=== PATIENT | female | born 1975 | race Hispanic/Latino ===

== ENCOUNTER 2017-12-26 19:06 | Emergency (ER) | payer OTHER ==
[~2017-12-26] VITALS: Ht 152.4 cm; Wt 90.7 kg
--- OUTSIDE RECORDS SUMMARY | 2017-12-26 19:10 | XMS REPORT ---
Author Author [facility] Address Unknown Phone Unavailable Care Team Providers Care Service Parts Driver Name Role Phone MARANDA JOE Unavailable Unavailable Problems This patient has no known problems. Allergies, Adverse Reactions, Alerts This patient has no known allergies or adverse reactions. Medications This patient has no known medications. Results Test Description Test Time Test Comments Text Results Atomic Results Result Comments RAPID CK-MB 2017-11-29 15:51:00 RAPID CKMB (BEAKER) (test ertm=6356) < ng/mL 0.0-4.3 RAPID TROPONIN [id number] 15:51:00* Test Item Value Reference Range Comments RAPID TROPONIN I (BEAKER) (test gitz=2569) < ng/mL <0.05 [id number] 15:44:00* Test Item Value Reference Range Comments D-DIMER QUANTITATIVE (BEAKER) (test srcc=373) < MG/L FEU <0.50 REGARDING D-DIMER RESULTS: Results of this D-Dimer test should always be interpreted in conjunction with the patient's medical history, clinical presentation and other findings. DVT clinical diagnosis should not be based on the results of INNOVANCE D-Dimer alone.URINALYSIS W/ REFLEX URINE [id number] 15:35:00* Test Item Value Reference Range Comments COLOR (BEAKER) (test xrph=005) Yellow CLARITY (BEAKER) (test xezx=584) Clear SPECIFIC GRAVITY UA (BEAKER) (test ldtj=561) 1.015 1.001-1.035 PH UA (BEAKER) (test tjpw=606) 7.0 5.0-8.0 PROTEIN UA (BEAKER) (test sneb=307) Negative Negative GLUCOSE UA (BEAKER) (test uboh=917) Negative Negative KETONES UA (BEAKER) (test thas=828) Negative Negative BILIRUBIN UA (BEAKER) (test uinv=665) Negative Negative BLOOD UA (BEAKER) (test qfho=038) Small Negative NITRITE UA (BEAKER) (test vncj=138) Negative Negative LEUKOCYTE ESTERASE UA (BEAKER) (test dcql=935) Negative Negative UROBILINOGEN UA (BEAKER) (test egnt=099) 0.2 mg/dL 0.2-1.0 BACTERIA (BEAKER) (test ihac=809) Occasional RBC UA-MANUAL (BEAKER) (test oxim=1320) 5-10 /HPF WBC UA-MANUAL (BEAKER) (test cmkw=0098) <5 /HPF SQUAMOUS EPITHELIAL MANUAL (BEAKER) (test isiz=0692) <5 /HPF SOURCE(BEAKER) (test auxq=3285) CBC W/PLT COUNT & AUTO [id number] 15:24:00* Test Item Value Reference Range Comments WHITE BLOOD CELL COUNT (BEAKER) (test qnpg=818) 9.1 10e3/ L 4.0-10.0 RED BLOOD CELL COUNT (BEAKER) (test jtgd=313) 4.44 10e6/ L 4.00-5.00 HEMOGLOBIN (BEAKER) (test pebw=137) 12.9 g/dL 12.0-15.0 HEMATOCRIT (BEAKER) (test czfv=269) 39.2 % 36.0-45.0 MEAN CORPUSCULAR VOLUME (BEAKER) (test nloj=245) 88.3 fL 82.0-99.0 MEAN CORPUSCULAR HEMOGLOBIN (BEAKER) (test sluh=507) 29.0 pg 27.0-33.0 MEAN CORPUSCULAR HEMOGLOBIN CONC (BEAKER) (test dyog=034) 32.8 g/dL 32.0- 36.0 RED CELL DISTRIBUTION WIDTH (BEAKER) (test briz=565) 12.1 % 10.3-14.2 PLATELET COUNT (BEAKER) (test ztst=536) 492 10e3/ L 150-430 MEAN PLATELET VOLUME (BEAKER) (test gofd=522) 6.5 fL 6.5-10.5 NEUTROPHILS RELATIVE PERCENT (BEAKER) (test uhoo=501) 56 % LYMPHOCYTES RELATIVE PERCENT (BEAKER) (test kfne=955) 32 % MONOCYTES RELATIVE PERCENT (BEAKER) (test seya=243) 9 % EOSINOPHILS RELATIVE PERCENT (BEAKER) (test fypv=839) 2 % BASOPHILS RELATIVE PERCENT (BEAKER) (test srlb=562) 1 % NEUTROPHILS ABSOLUTE COUNT (BEAKER) (test ppwm=581) 5.07 10e3/ L 1.80-8.00 LYMPHOCYTES ABSOLUTE COUNT (BEAKER) (test wlvt=990) 2.92 10e3/ L 1.48-4.50 MONOCYTES ABSOLUTE COUNT (BEAKER) (test lazf=291) 0.84 10e3/ L 0.00-1.30 EOSINOPHILS ABSOLUTE COUNT (BEAKER) (test tdtu=267) 0.21 10e3/ L 0.00-0.50 BASOPHILS ABSOLUTE COUNT (BEAKER) (test aage=622) 0.06 10e3/ L 0.00-0.20 BASIC METABOLIC [id number] 15:22:00* Test Item Value Reference Range Comments SODIUM (BEAKER) (test thel=955) 139 meq/L 135-148 POTASSIUM (BEAKER) (test rasc=601) 4.1 meq/L 3.6-5.5 CHLORIDE (BEAKER) (test wrqr=299) 100 meq/L 98-106 CO2 (BEAKER) (test yrsc=284) 28 meq/L 24-32 BLOOD UREA NITROGEN (BEAKER) (test bmwn=652) 12 mg/dL 10-26 CREATININE (BEAKER) (test qzhc=826) 0.84 mg/dL 0.50-1.20 GLUCOSE RANDOM (BEAKER) (test neui=944) 101 mg/dL 70-110 CALCIUM (BEAKER) (test fypm=168) 9.5 mg/dL 8.5-10.5 EGFR (BEAKER) (test ydlq=2020) 74 mL/min/1.73 sq m ESTIMATED GFR IS NOT ACCURATE CREATININE CLEARANCE IN PREDICTING GLOMERULAR FILTRATION RATE. ESTIMATED GFR IS NOT APPLICABLE FOR DIALYSIS PATIENTS. SCREEN, [id number] 15:18:00* Test Item Value Reference Range Comments TEST URINE (BEAKER) (test shkq=708) Negative RAD, CHEST, 2 [id number] 15:15:00Reason for exam:->chest painIs the patient ?->UnknownFINAL REPORT Chest 2 views 2017 3:15 PM CLINICAL HISTORY: chest pain COMPARISON: None available FINDINGS: The lungs are clear. Cardiomediastinal contours are within normal limits. The central pulmonary vasculature is not engorged. The visualized skeleton is intact. IMPRESSION: No acute radiographic abnormalities. Signed: Pedro Casiano Verified Date/Time: 11/29/2017 15:15:36 Reading Location: [facility] [id number] Consult Reading Room
--- OUTSIDE RECORDS SUMMARY | 2017-12-26 19:10 | XMS REPORT | Clinical Summary ---
Author Author [facility] Address Unknown Phone Unavailable Care Team Providers Care Routing Clerk Name Role Phone PCP Unavailable Allergies Active Allergy Reactions Severity Noted Date Comments Ibuprofen Hives 11/29/2017 Current Medications Prescription Sig. Disp. Refills Start End Date Status Date METOPROLOL SUCCINATE ORAL Take by mouth. Active LEVOTHYROXINE SODIUM Take by mouth. Active (LEVOTHYROXINE ORAL) METFORMIN HCL (METFORMIN Take by mouth. Active ORAL) Active Problems Not on file Encounters Date Type Specialty Care Team Description 11/29/2017 Emergency Emergency Medicine Maranda Medina MD Other chest pain (Primary Dx);Essential hypertension;Dizziness;Hi story of diabetes mellitus after 12/25/2016 Social History Tobacco Use Types Packs/Day Years Used Date Never Smoker Smokeless Tobacco: Never Used Alcohol Use Drinks/Week oz/Week Comments Yes socially Sex Assigned at Date Recorded Not on file Last Filed Vital Signs Vital Sign Reading Time Taken Blood Pressure 125/84 11/29/2017 4:47 PM SENIOR INVESTMENT ANALYST Pulse 61 11/29/2017 4:47 PM SENIOR INVESTMENT ANALYST Temperature 37 C (98.6 F) 11/29/2017 2:18 PM SENIOR INVESTMENT ANALYST Respiratory Rate 18 11/29/2017 4:47 PM SENIOR INVESTMENT ANALYST Oxygen Saturation 98% 11/29/2017 4:47 PM SENIOR INVESTMENT ANALYST Inhaled Oxygen - - Concentration Weight 91.2 kg (201 lb) 11/29/2017 2:18 PM SENIOR INVESTMENT ANALYST Height 154.9 cm (5' 1") 11/29/2017 2:18 PM SENIOR INVESTMENT ANALYST Body Mass Index 37.98 11/29/2017 2:18 PM SENIOR INVESTMENT ANALYST Plan of Treatment Not on file Results * ED ECG Interpretation (11/29/2017 4:40 PM) Narrative Maranda Medina MD 11/29/20174:40 PM ECG/EKG Interpretation Date/Time: 11/29/2017 2:34 PM Performed by: MARANDA MEDINA Authorized by: MARANDA MEDINA The ECG was interpreted by ED physician. The ECG is interpreted as sinus rhythm. Rate is normal rate. Heart rate is [address] segments normal. T waves normal. [place] is normal. Clinical Impression: normal ECGECG reviewed and does not meet STEMI criteria. Patient tolerance: Patient tolerated the procedure well with no immediate complications * XR chest 2 views (11/29/2017 3:10 PM) Specimen Performing Laboratory GE RIS Narrative FINAL REPORT Chest 2 views 11/29/2017 3:15 PM CLINICAL HISTORY: chest pain COMPARISON: None available FINDINGS: The lungs are clear. Cardiomediastinal contours are within normal limits. The central pulmonary vasculature is not engorged. The visualized skeleton is intact. IMPRESSION: No acute radiographic abnormalities. Signed: Pedro Puente MD Report Verified Date/Time:11/29/2017 15:15:36 Reading Location: [address] Consult Reading Room Procedure Note Interface, External Ris In - 11/29/2017 3:17 PM SENIOR INVESTMENT ANALYST FINAL REPORT Chest 2 views 11/29/2017 3:15 PM CLINICAL HISTORY: chest pain COMPARISON: None available FINDINGS: The lungs are clear. Cardiomediastinal contours are within normal limits. The central pulmonary vasculature is not engorged. The visualized skeleton is intact. IMPRESSION: No acute radiographic abnormalities. Signed: Pedro Puente MD Report Verified Date/Time: 11/29/2017 15:15:36 Reading Location: [address] Consult Reading Room * Urinalysis w/Microscopic + Reflex to Culture (11/29/2017 2:57 PM) Component Value Ref Range Color, UA Yellow Clarity, UA Clear Specific [place], UA 1.015 1.001 - 1.035 pH, UA 7.0 5.0 - 8.0 Protein, UA Negative Negative Glucose, UA Negative Negative Ketones, UA Negative Negative Bilirubin, UA Negative Negative Blood, UA Small (A) Negative Nitrite, UA Negative Negative Leukocytes, UA Negative Negative Urobilinogen, UA 0.2 0.2 - 1.0 mg/dL Bacteria, UA Occasional RBC, UA 5-10 /HPF WBC, UA <5 /HPF SQUAMOUS EPITHELIAL <5 /HPF Specimen Source Specimen Performing Laboratory Urine - Urine, [facility], [facility], [facility] [id number] [place] [id number] * Rapid Troponin I (11/29/2017 2:57 PM) Component Value Ref Range Rapid Troponin I <0.05 <0.05 ng/mL Specimen Performing Laboratory [facility] , [facility] [id number] [place] [id number] * Rapid CK-MB (11/29/2017 2:57 PM) Component Value Ref Range Rapid CKMB <1.0 0.0 - 4.3 ng/mL Specimen Performing Laboratory [facility] [address] [place] [id number] * CBC with platelet count + automated diff (11/29/2017 2:57 PM) Component Value Ref Range WBC 9.1 4.0 - 10.0 10e3/ L RBC 4.44 4.00 - 5.00 10e6/ L Hemoglobin 12.9 12.0 - 15.0 g/dL Hematocrit 39.2 36.0 - 45.0 % MCV 88.3 82.0 - 99.0 fL MCH 29.0 27.0 - 33.0 pg MCHC 32.8 32.0 - 36.0 g/dL RDW 12.1 10.3 - 14.2 % Platelets 492 (H) 150 - 430 10e3/ L MPV 6.5 6.5 - 10.5 fL % Neutros 56 % % Lymphs 32 % % Monos 9 % % Eos 2 % % Baso 1 % # Neutros 5.07 1.80 - 8.00 10e3/ L # Lymphs 2.92 1.48 - 4.50 10e3/ L # Monos 0.84 0.00 - 1.30 10e3/ L # Eos 0.21 0.00 - 0.50 10e3/ L # Baso 0.06 0.00 - 0.20 10e3/ L Specimen Performing Laboratory [facility] , [facility] [id number] [place] [address] * Screen, urine (11/29/2017 2:57 PM) Component Value Ref Range Preg Test, Ur Negative Specimen Performing Laboratory Urine - Urine, [facility] [place], [facility] [id number] [place] [address] * D-dimer (11/29/2017 2:57 PM) Component Value Ref Range D-Dimer, Quant <0.19 <0.50 MG/L FEU Specimen Performing Laboratory Blood [facility] , [facility] [address] [place] [phone] Narrative REGARDING D-DIMER RESULTS: Results of this D-Dimer test should always be interpreted in conjunction with the patient's medical history, clinical presentation and other findings. DVT clinical diagnosis should not be based on the results of INNOVANCE D-Dimer alone. * CBC with platelet count + automated diff (11/29/2017 2:57 PM) Specimen Performing Laboratory Blood Narrative The following orders were created for panel order CBC with platelet count + automated diff. Procedure Abnormality Status --------- - ------ CBC with platelet count ...[[id number]]AbnormalFinal result Please view results for these tests on the individual orders. * Basic Metabolic Panel (11/29/2017 2:57 PM) Component Value Ref Range Sodium 139 135 - 148 meq/L Potassium 4.1 3.6 - 5.5 meq/L Chloride 100 98 - 106 meq/L CO2 28 24 - 32 meq/L BUN 12 10 - 26 mg/dL Creatinine 0.84 0.50 - 1.20 mg/dL Glucose 101 70 - 110 mg/dL Calcium 9.5 8.5 - 10.5 mg/dL EGFR 74Comment: ESTIMATED GFR IS NOT ACCURATE mL/min/1.73 sq m CREATININE CLEARANCE IN PREDICTING GLOMERULAR FILTRATION RATE. ESTIMATED GFR IS NOT APPLICABLE FOR DIALYSIS PATIENTS. Specimen Performing Laboratory Blood [facility] [place] [facility] [address] [place] [address] * ECG 12 lead (11/29/2017 2:26 PM) Specimen Performing Laboratory [facility] Narrative Ventricular Rate 63 BPM Atrial Rate 63 BPM P-R Interval 170 ms QRS Duration 78 ms Q-T Interval 422 ms QTC Calculation(Bazett) 431 ms P [place] 39 degrees R [place] 22 degrees T [place] 16 degrees Normal sinus rhythm Normal ECG No previous ECGs available Confirmed by MD MULLINS YOCHAI ([id number]) on 11/30/2017 7:06:45 AM Procedure Note Interface, External Ris In - 11/30/2017 7:06 AM SENIOR INVESTMENT ANALYST Ventricular Rate 63 BPM Atrial Rate 63 BPM P-R Interval 170 ms QRS Duration 78 ms Q-T Interval 422 ms QTC Calculation(Bazett) 431 ms P [place] 39 degrees R [place] 22 degrees T [place] 16 degrees Normal sinus rhythm Normal ECG No previous ECGs available Confirmed by MD MULLINS YOCHAI ([id number]) on 11/30/2017 7:06:45 AM after 12/25/2016
[2017-12-26 21:26] VITALS: BP 142/80
== END 2017-12-26 21:29 | disposition home or self-care (01) ==
LOC: FSED 19:06
DX: M54.6 Pain in thoracic spine (principal); M54.2 Cervicalgia; I10 Essential (primary) hypertension
CPT/HCPCS: 72040; 72072; 81003; 99283

== ENCOUNTER → 2020-01-10 | Outpatient (CLI) | payer OTHER ==
--- NOTE | 2020-01-10 11:15 | Diagnostic Imaging Report ---
EXAMINATION: CHEST 2 VIEWS INDICATION: Screening COMPARISON: None FINDINGS: LINES/TUBES:None LUNGS:The lungs are well-inflated. No focal consolidation or pulmonary edema. PLEURA:No pleural effusion or pneumothorax. MEDIASTINUM:The cardiomediastinal silhouette appears normal in size and shape. BONES/SOFT TISSUES:No acute osseous injury. ABDOMEN:No free air under the diaphragm. IMPRESSION: No focal pneumonia or pulmonary edema. Signed by: Hernan Menard MD on 01/10/2020 11:12 AM
== END ==
LOC: RAD 10:43
PROVIDERS: ATTEND Internal Medicine
DX: Z00.00 Encounter for general adult medical examination without abnormal findings (principal)
CPT/HCPCS: 71046

== ENCOUNTER 2024-06-20 19:15 | Emergency (ER) | payer OTHER ==
[~2024-06-20] VITALS: Ht 154.9 cm; Wt 97.5 kg
[2024-06-20 19:22] VITALS: TEMP 99.1
[2024-06-20] MEDS: ACETAMINOPHEN 325 MG TAB PO ONE (19:51)
[2024-06-20] MEDS: ONDANSETRON HCL 4 MG ORAL DISINTEGRATING TAB PO ONE (19:51)
[2024-06-20] MEDS: KETOROLAC TROMETHAMINE 30 MG/ML VIAL IM ONE (19:51)
[2024-06-20] MEDS ORDERED: IBUPROFEN200 MG PO (21:20)
[2024-06-20] MEDS ORDERED: ZANAFLEX4 MG PO (21:20)
[2024-06-20 21:35] VITALS: PULSE 50; RESP 16; O2SAT 98
== END 2024-06-20 22:15 | disposition home or self-care (01) ==
LOC: FSED 19:19
DX: R50.9 Fever, unspecified (principal); M54.50 Low back pain, unspecified; I10 Essential (primary) hypertension
CPT/HCPCS: 74176; 81003; 81025; 99284; J1885; Q0162